=== PATIENT | male | born 1995 | race Two or more races ===

== ENCOUNTER 2021-07-06 19:28 | Emergency (ER) | payer SELFPAY ==
[~2021-07-06] VITALS: Ht 180.3 cm; Wt 108.5 kg
--- NOTE | 2021-07-07 01:45 | PHYS DOC ---
General Adult EDM: Chief Complaint: CHEST WALL PAIN HPI: HPI: Patient is a 26 year old male presents for evaluation of chest discomfort. Patient states chest discomfort started 1400 hrs. while at work lifting certain objects. Patient states discomfort was worse with exertion. Patient also states he had some change this to palpation of his chest which exacerbated the pain. Patient denied any associated shortness of breath. Patient states in [place] several years back he had similar symptoms-- unsure of the diagnosis. EKG was performed on patient arrival no acute ischemic changes. Patient is not currently on any medications at the time my exam patient states pain has resolved. Review of Systems: Review of Systems: Review of systems: Constitutional symptoms- No fever, no chills. Eyes- No Discharge, No Visual Loss Respiratory symptoms- No shortness of breath, No wheezing, No Dyspnea on Ex ertion Cardiovascular Systems; Positive chest pain, No Palpitations, No syncope Gastrointestinal symptoms: NO abdominal pain, no nausea, no vomiting or diarrhea. Genitourinary symptoms: No dysuria. Musculoskeletal symptoms: No back pain No extremity pain. NEUROLOGICAL Symptoms: No headache, no generalized weakness; No focal Weakness Skin: No rash. Heart Score: C/O Chest Pain: N/A Risk Factors: Risk Factors: DM, Current or recent (<one month) smoker, HTN, HLP, family history of CAD, obesity. Risk Scores: Score 0 - 3: 2.5% MACE over next 6 weeks - Discharge Home Score 4 - 6: 20.3% MACE over next 6 weeks - Admit for Clinical Observation Score 7 - 10: 72.7% MACE over next 6 weeks - Early Invasive Strategies Physical Exam: PE: General: alert, no acute distress. Skin: warm, dry and intact, no erythema, no rash. HENT: bilateral external ears normal, oropharynx moist, nose normal. Head:: Normocephalic, atraumatic. Neck: Trachea midline. Eyes: EOMI, Normal conjunctiva, No drainage CARDIOVASCULAR: Regular rate and rhythm RESPIRATORY: No respiratory distress Back: Full range of motion. MUSCULOSKELETAL: Full range of motion of bilateral upper and lower extremities. GASTROINTESTINAL: Abdomen soft without rebound or guarding. NEUROLOGICAL: Alert and noted to person, place and time. No neurological deficits observed Psychiatric: Cooperative. Normal judgment EKG: EKG: [] Performed at 0140 Rate 70 Normal sinus rhythm No ST elevation No ST depression No acute OK Radiology/Procedures: Radiology/Procedures: [] Course & Med Decision Making: Course & Med Decision Making Pertinent Labs and Imaging studies reviewed. (See chart for details) [] Discharged home on naproxen. [place] Disclaimer: Chelsea Disclaimer: This electronic medical record was generated, in whole or in part, using a voice recognition dictation system. Departure Departure Impression: Primary Impression: Chest pain Disposition: HOME / SELF CARE / HOMELESS Condition: STABLE Referrals: NO PCP (PCP) Patient Instructions: Chest Pain (Nonspecific), Costochondritis Scripts Naproxen (NAPROSYN) 500 Mg Tablet 500 MG PO BID, #20 TAB Prov: JUANJO RIGGINS DO 07/07/21 JUANJO RIGGINS DO Jul 07, 2021 01:45
[2021-07-07] MEDS ORDERED: NAPR-683 PO (02:33)
[2021-07-07 02:56] VITALS: BP 121/70
--- NOTE | 2021-07-07 11:43 | EKG ---
[facility] [address] [place] [address] Test Date: 2021-07-06 Test Time: 19:59:05 Pat Name: NAOMI PATEL Department: Room: Gender: M Tool Maker: : 1995 Requested By: JUANJO RIGGINS Order Number: [id number] Reading MD: Jermaine Barry Measurements Intervals [place] Rate: 76 P: 38 DE: 140 QRS: 15 QRSD: 94 T: 38 QT: 344 QTc: 391 Interpretive Statements SINUS ARRHYTHMIA Electronically Signed On 07-08-2021 8:15:53 [employer]ODYWORK THERAPIST by Jermaine Barry
--- NOTE | 2021-07-08 19:30 | EKG ---
[facility] [address] [place] [address] Test Date: 2021-07-07 Test Time: 01:40:24 Pat Name: NAOMI PATEL Department: Room: Gender: M [employer]: : 1995 Requested By: JUANJO RIGGINS Order Number: [id number] Reading MD: Measurements Intervals [place] Rate: 70 P: 0 MI: 158 QRS: 20 QRSD: 94 T: 32 QT: 376 QTc: 409 Interpretive Statements SINUS RHYTHM NORMAL ECG RI6.02 Compared to ECG 07/06/2021 19:59:05 Sinus arrhythmia no longer present
== END 2021-07-07 02:56 | disposition home or self-care (01) ==
LOC: ER 19:28
DX: R07.89 Other chest pain (principal)
CPT/HCPCS: 93005; 99283